=== PATIENT | female | born 1965 | race Two or more races ===

== ENCOUNTER 2018-01-22 22:32 | Emergency (ER) | payer MEDICAID ==
[~2018-01-22] VITALS: Ht 152.4 cm; Wt 65.5 kg
[2018-01-22 22:33] VITALS: BP 142/85
== END 2018-01-22 23:13 | disposition home or self-care (01) ==
LOC: ED 23:00
DX: H66.001 Acute suppurative otitis media without spontaneous rupture of ear drum, right ear (principal); B34.9 Viral infection, unspecified; F17.210 Nicotine dependence, cigarettes, uncomplicated
CPT/HCPCS: 71046; 99284